=== PATIENT | female | born 1965 | race Caucasian/White ===

== ENCOUNTER 2023-02-27 02:51 | Outpatient (CLI) | payer SELFPAY ==
[2023-02-28 11:06] LABS: Varicella IgG Antibody Positive (See Note)
[2023-02-28 11:12] LABS: Measles IgG Antibody Positive (See Note)
[2023-02-28 11:17] LABS: Mumps Antibody IgG Positive (See Note); Rubella IgG Ab (UVM) Positive (See Note)
[2023-03-01 11:18] LABS: TB Interpretation Negative (Negative); TB1 Ag minus Nil 0.01 IU/ml; TB2 Ag minus Nil 0.01 IU/mL
== END 2023-02-27 02:52 | disposition home or self-care (01) ==
LOC: LBO 02:51
PROVIDERS: Visit Provider Nurse Practitioner Family
DX: Z02.1 Encounter for pre-employment examination (principal)
CPT/HCPCS: 36415; 86787; 86480; 86735; 86762; 86765